=== PATIENT | female | born 1990 | race Caucasian/White ===

== ENCOUNTER 2017-09-24 18:53 | Inpatient (IN) | payer OTHER ==
[~2017-09-24] VITALS: Ht 172.7 cm; Wt 68.0 kg
[2017-09-24 19:19] VITALS: BP 122/81
--- NOTE | 2017-09-24 19:25 | NUR ---
to lobby, a/w jacob cordero ermd noted
[2017-09-24 20:00] LABS: WHITE BLOOD COUNT (AUTO) 13.2 K/uL (4.8-10.8)
[2017-09-24 20:05] LABS: HEMATOCRIT 38.7 % (36-48); HEMOGLOBIN 13.1 g/dL (12.0-16.0); MEAN CORPUSCULAR HEMOGLOBIN 33 pg (27-31); MEAN CORPUSCULAR HGB CONC 34 g/dL (33-37); MEAN CORPUSCULAR VOLUME 97 fL (80-94); PLATELET COUNT (AUTO) 254 K/uL (140-450); RED CELL DISTRIBUTION WIDTH 12.1 % (11.6-13.7)
[2017-09-24 20:08] LABS: APPEARANCE,URINE SL CLOUDY (CLEAR); BILIRUBIN,URINE 1+ (NEGATIVE); BLOOD, URINE 2+ (NEGATIVE); COLOR,URINE YELLOW (YELLOW); LEUKOCYTE ESTERASE ,URINE NEGATIVE (NEGATIVE); NITRITE, URINE NEGATIVE (NEGATIVE); UGLUCOSE NEGATIVE (NEGATIVE)
[2017-09-24 20:11] LABS: LYMPHOCYTES % (MANUAL) 23 % (20-46); MONOCYTES % (MANUAL) 7 % (5-12)
[2017-09-24 20:25] LABS: RBC,URINE 0-5 (RARE) /HPF (0-5); WBC,URINE 0-5 (RARE) /HPF (0-5)
[2017-09-24] MEDS ORDERED: NACL 0.9% 1,000 ML IV ONE (20:25)
--- NOTE | 2017-09-24 20:25 | NUR ---
BIB WHEELCHAIR TO ER BED 3
--- NOTE | 2017-09-24 21:23 | NUR ---
PT C/O LOWER ABD PAIN AND VAGINAL BLEEDING S/P MISCARRIAGE IN . PT STATES SHE IS CURRENTLY BEING SEEN BY HER OBGYN FOR MISCARRIAGE SHE HAD IN "". PT STATES TODAY SHE HAD INCREASE IN VAGINAL BLEEDING AND INCREASED LOWER ABD PAIN. PAIN 10/10, CRAMPING, ABD IS ROUND, SOFT, TENDER, HYPOACTIVE BS X4. PT DENIES PMH, NKA
[2017-09-24] MEDS ORDERED: MORPHINE SULFATE 4 MG/ML SYR IVP ONE (21:40)
[2017-09-24] MEDS ORDERED: ACETAMINOPHEN 325 MG TAB PO PRN (22:35)
[2017-09-24] MEDS ORDERED: ONDANSETRON 4 MG/2 ML VIAL IVP PRN (22:35)
[2017-09-24 23:00] VITALS: BP 111/71
--- NOTE | 2017-09-24 23:00 | NUR ---
Patient will be admitted to care of DR. CLIFTON. Admited to TELE. Will go to [id number]. Belongings list completed. Report to RUKHSANA.
--- NOTE | 2017-09-24 23:00 | NUR ---
Admitted from ER, with chief complaint of INCREASED BLEEDING AND ABD PAIN X1 DAY, DX L RUPTURED ECTOPIC. PT'S AT BEDSIDE. 26 y/o, Female, Cooperative, AOX4, AMBULATORY, ABLE TO VERBALIZE NEEDS. PT REPORTS REDUCED CONSTANT SHARP LOWER ABD PAIN AFTER RECEIVING MORPHINE 4MG IVP IN ER. PT REPORTS CONTROLLED BLEEDING AT THIS TIME. IV ACCESS ASYMPTOMATIC, PATENT AND INTACT, WILL ADMINISTER IVF ORDERED. oriented to call light, bed, phone,television, bathroom, smoking policy, visiting hours, procedures, ID bracelet on. Belongings list checked. ALL NEEDS MET. SAFETY MEASURES ENSURED. CALL LIGHT WITHIN REACH.
[2017-09-24 23:06] LABS: ANION GAP 17.1 (8-16); CARBON DIOXIDE 23.8 mmol/L (21-32); CREATININE 0.7 mg/dL (0.6-1.3); POTASSIUM 3.9 mmol/L (3.5-5.1)
[2017-09-24 23:13] LABS: BARBITURATE, URINE POS. ng/ml (NEG <=200); BENZODIAZEPINE, URINE NEG. ng/mL (NEG <=200); CANNABINOID, URINE POS. ng/mL (NEG <=50); COCAINE, URINE NEG. ng/mL (NEG <=300); OPIATE, URINE NEG. ng/mL (NEG <=2000); PHENCYCLIDINE SCREEN,URINE NEG. ng/mL (NEG <=25)
[2017-09-24] MEDS ORDERED: MORPHINE SULFATE 2 MG/ML SYR IVP ONE (23:20)
[2017-09-24 23:22] LABS: FREE T4 (FREE THYROXINE) 1.09 ng/dL (0.76-1.46); PHOSPHORUS 3.4 mg/dL (2.5-4.9); THYROID STIMULATING HORMONE 3.02 uIU/mL (0.34-3.74)
[2017-09-24] MEDS: NACL 0.9% 1,000 ML IV SCH (23:30)
--- NOTE | 2017-09-24 23:30 | NUR ---
DR HINOJOSA AT BEDSIDE TO DISCUSS PLAN OF CARE WITH PT AND PT'S . ADMINISTERED IVF WITH EDUCATION. PT VERBALIZED UNDERSTANDING. IVF INFUSING WELL. ALL NEEDS MET.
[2017-09-24] MEDS ORDERED: LEVOFLOXACIN 500 MG/D5W PREMIX 100 ML IV SCH (23:55)
[2017-09-25] VITALS (8 sets, daily range): BP systolic 101–114; BP diastolic 61–77
[2017-09-25] MEDS: MORPHINE SULFATE 2 MG/ML SYR IVP PRN ×4 (00:57→10:39)
--- NOTE | 2017-09-25 00:57 | NUR ---
PT C/O LOWER ABD PAIN, SEE PAIN ASSESSMENT, ADMINISTERED 2MG MORPHINE IVP PRN WITH EDUCATION. ADMINISTERED LEVAQUIN IVPB WITH EDUCATION. PT VERBALIZED UNDERSTANDING, TOLERATED MEDS WELL. ALL NEEDS MET. SAFETY MEASURES ENSURED.
--- NOTE | 2017-09-25 03:59 | NUR ---
PT REPORTS DECREASED VAGINAL BLEEDING. PT C/O LOWER ABD PAIN, SEE PAIN ASSESSMENT, ADMINISTERED 2MG MORPHINE IVP PRN WITH EDUCATION. PT VERBALIZED UNDERSTANDING, TOLERATED MEDS WELL. ALL NEEDS MET. SAFETY MEASURES ENSURED.
--- NOTE | 2017-09-25 07:10 | NUR ---
PT C/O ABD PAIN, SEE PAIN ASSESSMENT, ADMINISTERED MORPHINE 2MG IVP PRN. ENDORSED PLAN OF CARE TO AM NURSE. DR Imelda CUENCA AT BEDSIDE TO SPEAK WITH PT.
--- NOTE | 2017-09-25 07:11 | NUR ---
RECEIVED REPORT FROM THE DATA INTEGRATION ARCHITECT NURSE AT BEDSIDE FOR CONTINUITY OF CARE. PT IS AWAKE AND ORIENTED. INTRODUCED MYSELF AND UPDATE THE BOARD. DR. CUENCA IS HERE TO CONSULT. PER PT, PT STARTED BLEEDING HEAVILY LAST NIGHT W/ EXCRUCIATING ABD PAIN. SHE HAS HX OF AND MISCARRIAGE. HX OF R AND L OVARIAN CYSTS. LMP IS IN DEC, WHICH SHE HAD FOR 2 WEEKS. 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 WANTED TO WAIT AND SEE. PT HAS IV ON R WRIST 22G NS AT 75ML. WILL CONTINUE TO MONITOR PT.
--- NOTE | 2017-09-25 08:00 | NUR ---
V/S WITHIN NORMAL RANGE. DENIES PAIN AT THIS TIME. WILL NEED TO DISCUSS WITH AND WILL LET ME KNOW TO WHAT SHE HAS DECIDED TO DO. THEN I WILL CALL DR. CUENCA W/ DECISION. LAP OR OPEN CYSTECTOMY AND CLEAN OUT UTERUS. WILL CONTINUE PT ON NPO EXCEPT MEDS. WILL CONTINUE TO MONITOR PT.
[2017-09-25] MEDS: LACTOBACILLUS RHAMNOSUS GG 1 EACH CAP PO SCH (08:46)
[2017-09-25] MEDS: DOCUSATE SODIUM 100 MG GELCAP PO SCH ×2 (08:46→20:34)
--- NOTE | 2017-09-25 08:50 | NUR ---
ADMINISTERED MORNING MEDS. PT TOLERATED WELL. SPOUSE AND MOM AT BEDSIDE. DECIDED TO GO WITH LESS INVASIVE PROCEDURE. CONCERNED ABOUT INS. WOULD LIKE TO TALK TO SOMEONE ABOUT IT. WILL F/U. WILL NOTIFY DR. CUENCA. WILL CONTINUE TO MONITOR PT.
--- NOTE | 2017-09-25 09:20 | NUR ---
PATIENT HAS BEEN SCREENED AND CATEGORIZED LOW NUTRITION RISK. PATIENT WILL BE SEEN WITHIN 7 DAYS OF ADMISSION. 09/30/[address]
[2017-09-25] MEDS: NACL 0.9% 1,000 ML IV SCH ×2 (10:39→20:40)
--- NOTE | 2017-09-25 10:53 | NUR ---
FAMILY INSISTS ON SPEAKING TO DR CUENCA AND INSURANCE PERSON. PAGED DR CUENCA AGAIN. NO CALL BACK OF YET. FAMILY AT BEDSIDE WAITING.
[2017-09-25] MEDS: HYDROcodone/APAP 7.5/325 MG 1 TAB PO PRN ×2 (14:08→21:05)
--- NOTE | 2017-09-25 14:11 | NUR ---
PT C/O MILD PAIN. 01/25. ADMINISTERED NORCO. PT TOLERATED WELL. FAMILY IN ROOM. WILL CONTINUE TO MONITOR PT.
--- NOTE | 2017-09-25 14:54 | NUR ---
PT IS VISITING WITH FAMILY. REQUESTED PT TO REMOVE ALL JEWELRY. TICKET TO RIDE IN CHART. PRE-OP CHECK LIST DONE. AWAITING O/R NURSES.
[2017-09-25] MEDS ORDERED: BUPIVACAINE-MPF 0.25% 30 ML VIAL INJ ONE (15:10)
--- NOTE | 2017-09-25 15:30 | NUR ---
2 OR NURSES CAME AND TOOK PT FOR PROCEDURE. FAMILY ACCOMPANIED HER. THEY WILL BE WAITING FOR PT IN THE THEIR WAITING ROOM. WILL AWAIT HER RETURN.
--- NOTE | 2017-09-25 15:30 | NUR ---
CM NOTE INITIAL REVIEW FAXED TO [facility] / FAX# [phone], ATTN: SAMI #[phone]
[2017-09-25] MEDS ORDERED: GLYCOPYRROLATE 0.2 MG/ML VIAL ONE (15:55)
[2017-09-25] MEDS ORDERED: PROPOFOL 200 MG/20 ML VIAL IV ONE (15:55)
[2017-09-25] MEDS ORDERED: ONDANSETRON 4 MG/2 ML VIAL ONE (15:55)
[2017-09-25] MEDS ORDERED: ROCURONIUM 50 MG/5 ML VIAL IV ONE (15:55)
[2017-09-25] MEDS ORDERED: NEOSTIGMINE 1:1000 10 MG/10 ML VIAL ONE (15:55)
[2017-09-25] MEDS ORDERED: LIDOCAINE 2% 100 MG/5 ML SYR IVP ONE (15:55)
[2017-09-25] MEDS ORDERED: DESFLURANE 240 ML BTL INH ONE (15:55)
[2017-09-25] MEDS ORDERED: DEXAMETHASONE 4 MG/ML VIAL ONE (15:55)
[2017-09-25] MEDS ORDERED: SUCCINYLCHOLINE CHLORIDE 200 MG/10 ML VIAL IVP ONE (15:55)
[2017-09-25] MEDS ORDERED: fentaNYL 0.05 MG/ML VIAL ONE (16:07)
[2017-09-25] MEDS ORDERED: MIDAZOLAM 2 MG/2 ML VIAL ONE (16:07)
[2017-09-25] MEDS ORDERED: ONDANSETRON 4 MG/2 ML VIAL IVP PRN ×2 (16:30→17:30)
[2017-09-25] MEDS ORDERED: MORPHINE SULFATE 4 MG/ML SYR IM/IVP PRN (17:30)
[2017-09-25] MEDS ORDERED: ACETAMINOPHEN/CODEINE 300/30MG 1 TAB PO PRN (17:30)
[2017-09-25] MEDS ORDERED: IBUPROFEN 800 MG TAB PO PRN (17:30)
[2017-09-25] MEDS: HYDROmorphone PFS 2 MG/ML SYR IVP PRN ×2 (17:45→17:55)
[2017-09-25] MEDS ORDERED: HYDROmorphone PFS 2 MG/ML SYR ONE (17:48)
--- NOTE | 2017-09-25 18:25 | NUR ---
PT ARRIVED ON THE UNIT WITH 2 OR NURSES. PT IS ACCOMPANIED BY HER . V/S WITHIN NORMAL RANGE. PT AWAKE AND ORIENTED. BACK ON THE TELE MONITOR. WILL CONTINUE WITH POST OP MONITORING.
--- NOTE | 2017-09-25 19:20 | NUR ---
ENDORSED PT TO THE DOOR SERVICEMAN NURSE AT BEDSIDE FOR CONTINUITY OF CARE. PT IS IN STABLE CONDITION. SPOUSE AT BEDSIDE. BIT NAUSEATED. VOMIT BAG AT BEDSIDE. CRACKERS GIVEN.
--- NOTE | 2017-09-25 19:20 | NUR ---
PATIENT REPORT RECEIVED FROM MORNING NURSE AT BEDSIDE. PATIENT AWAKE, ALERT AND ORIENTED. NO SIGNS AND SYMPTOMS OF DISTRESS NOTED. BREATHING EVEN AND UNLABORED. PATIENT'S IS AT BEDSIDE. IV SITE NOTED ON RIGHT WRIST. IVF INFUSING WELL. SURGICAL SITE ON LOWER ABDOMEN COVERED WITH GAUZE. DRESSING DRY AND INTACT. 2ND SURGICAL SITE NEAR NAVEL AREA COVERED WITH BANDAID. PLAN OF CARE DISCUSSED WITH PATIENT AND FAMILY MEMBER. PATIENT VERBALIZED UNDERSTANDING. WILL CONTINUE TO MONITOR.
--- NOTE | 2017-09-25 19:30 | NUR ---
PATIENT REPORT GIVEN TO ED LUCAS FOR CONTINUITY OF CARE. PATIENT IS IN STABLE CONDITION
--- NOTE | 2017-09-25 19:31 | NUR ---
RECEIVED BEDSIDE REPORT FROM LANCE ROSS, PT STABLE, NO DISTRESS NOTED, IV TO R WRIST 22G, RUNNING NS @ 75ML/HR, INFUSING WELL, NO SOB, BY BEDSIDE, CALL LIGHT WITHIN REACH, WILL CONTINUE TO MONITOR.
[2017-09-25] MEDS ORDERED: LEVOFLOXACIN 500 MG/D5W PREMIX 100 ML IV SCH (21:00)
--- NOTE | 2017-09-25 21:05 | NUR ---
PT C/O PAIN 10, PAIN MEDICATION GIVEN, PT TOLERATED WELL, WILL CONTINUE TO MONITOR.
[2017-09-25 22:15] LABS: HEMATOCRIT 31.5 % (36-48); HEMOGLOBIN 10.5 g/dL (12.0-16.0); MEAN CORPUSCULAR HEMOGLOBIN 32 pg (27-31); MEAN CORPUSCULAR HGB CONC 33 g/dL (33-37); MEAN CORPUSCULAR VOLUME 96 fL (80-94); PLATELET COUNT (AUTO) 187 K/uL (140-450); RED CELL DISTRIBUTION WIDTH 11.6 % (11.6-13.7); WHITE BLOOD COUNT (AUTO) 11.9 K/uL (4.8-10.8)
--- NOTE | 2017-09-25 22:33 | NUR ---
ENDORSED PLAN OF CARE TO LANCE ROSS FOR CONTINUITY OF CARE. PT STABLE, NO DISTRESS NOTED, CALL LIGHT WITHIN REACH.
--- NOTE | 2017-09-25 22:34 | NUR ---
PATIENT REPORT RECEIVED FROM LANCE WARD FOR CONTINUITY OF CARE. PATIENT IS IN STABLE CONDITION.
[2017-09-25 22:44] LABS: LYMPHOCYTES % (MANUAL) 4 % (20-46); MONOCYTES % (MANUAL) 1 % (5-12)
[2017-09-26] VITALS: BP 96/58
--- NOTE | 2017-09-26 00:30 | NUR ---
CHECKED ON PATIENT. PATIENT IS ASLEEP. NO SIGNS AND SYMPTOMS OF DISTRESS NOTED. BREATHING EVEN AND UNLABORED. WILL CONTINUE TO MONITOR.
--- NOTE | 2017-09-26 02:00 | NUR ---
ASSISTED PATIENT TO THE RESTROOM. PATIENT VOIDED. NO SIGNS AND SYMPTOMS OF DISTRESS NOTED. NO SOB. PATIENT ESCORTED BACK TO BED.
[2017-09-26] MEDS: HYDROcodone/APAP 7.5/325 MG 1 TAB PO PRN ×3 (02:46→13:11)
[2017-09-26 04:00] VITALS: BP 109/73
[2017-09-26 06:18] LABS: BASOPHILS # (AUTO) 0.1 K/uL (0.00-0.22); BASOPHILS % (AUTO) 0.8 % (0.0-2.0); EOSINOPHILS # (AUTO) 0.1 K/uL (0-0.4); EOSINOPHILS % (AUTO) 1.1 % (0.0-4.0); HEMATOCRIT 29.4 % (36-48); LYMPHOCYTES # (AUTO) 0.8 K/uL (2.5-16.5); LYMPHOCYTES % (AUTO) 7.1 % (20.5-51.1); MEAN CORPUSCULAR HEMOGLOBIN 33 pg (27-31); MEAN CORPUSCULAR HGB CONC 34 g/dL (33-37); MEAN CORPUSCULAR VOLUME 96 fL (80-94); MONOCYTES # (AUTO) 1.1 K/uL (0.8-1.0); MONOCYTES % (AUTO) 9.8 % (1.7-9.3); NEUTROPHILS % (AUTO) 81.2 % (42.2-75.2); PLATELET COUNT (AUTO) 172 K/uL (140-450); RED BLOOD CELL COUNT(AUTO) 3.05 MIL/uL (4.20-5.40); RED CELL DISTRIBUTION WIDTH 11.7 % (11.6-13.7)
[2017-09-26 06:27] LABS: ANION GAP 12.7 (8-16); CARBON DIOXIDE 25.1 mmol/L (21-32); CREATININE 0.5 mg/dL (0.6-1.3); POTASSIUM 3.8 mmol/L (3.5-5.1)
[2017-09-26 06:28] LABS: MAGNESIUM 1.6 mg/dL (1.8-2.4); PHOSPHORUS 4.1 mg/dL (2.5-4.9)
[2017-09-26 06:51] LABS: WHITE BLOOD COUNT (AUTO) 11.1 K/uL (4.8-10.8)
--- NOTE | 2017-09-26 07:29 | NUR ---
PATIENT REPORT GIVEN TO MORNING NURSE AT BEDSIDE. PATIENT IS IN STABLE CONDITION
--- NOTE | 2017-09-26 07:32 | NUR ---
RECEIVED PATIENT REPORT AT BEDSIDE FROM NIGHT NURSE. PATIENT IS AAOX4 AND SHOWS NO S/S OF ACUTE DISTRESS ON ROOM AIR. PATIENT C/O SHOULDER PAIN 6/10 AND ABD TENDERNESS; WILL MEDICATE. NOTED SURGICAL INCISION WITH STERI STRIPS CLEAN DRY AND INTACT. NOTED IV ON THE RIGHT WRIST WITH IVF'S INFUSING WELL. DR CALLAHAN AT BEDSIDE AND DISCUSSED POC FOR TODAY. PATIENT IS AWARE OF HOSPITAL ENVIRONMENT AND HOW TO USE CALL LIGHT FOR ASSISTANCE. BED IN LOW POSITION WITH CALL LIGHT WITHIN REACH, PATIENT VERBALIZED UNDERSTANDING.
--- NOTE | 2017-09-26 07:49 | NUR ---
PATIENT C/O 6/10 ABD PAIN AND SHOULDER PAIN. ADMINISTERED NORCO 7.5/325 MG PO. WILL REASSESS PAIN IN ONE HR.
[2017-09-26 08:00] VITALS: BP 106/96
[2017-09-26] MEDS: LACTOBACILLUS RHAMNOSUS GG 1 EACH CAP PO SCH (09:13)
[2017-09-26] MEDS: DOCUSATE SODIUM 100 MG GELCAP PO SCH (09:13)
--- NOTE | 2017-09-26 09:15 | NUR ---
ADMINISTERED SCHEDULED MEDS. PATIENT SWALLOWED MEDICATION WITHOUT DIFFICULTY. ALL PATIENT NEEDS MET AT THIS TIME. BED IN LOW POSITION. CALL LIGHT WITHIN REACH
--- NOTE | 2017-09-26 10:15 | NUR ---
[place] [facility] [phone] PHONE SAMI [phone]
--- NOTE | 2017-09-26 10:35 | NUR ---
PATIENT AMB ON UNIT WITH STEADY GAIT. PRESENT AT SIDE.
[2017-09-26] MEDS ORDERED: SIMETHICONE 80 MG TAB.CHEW PO SCH (12:42)
[2017-09-26] MEDS ORDERED: POLYETHYLENE GLYCOL 17 GM/PKT PO SCH (12:42)
--- NOTE | 2017-09-26 13:13 | NUR ---
ADMINISTERED SCHEDULED MEDICATIONS. PATIENT C/O 11/25 ABD PAIN, NORCO 7.5/325 MG PO GIVEN WILL REASSESS IN ONE HR.
[2017-09-26] MEDS ORDERED: MAGNESIUM OXIDE 400 MG TAB PO SCH (13:28)
[2017-09-26] MEDS ORDERED: ACET-2863 PO (13:51)
--- NOTE | 2017-09-26 15:30 | NUR ---
PATIENT HAS BEEN DISCHARGED, ALL DISCHARGE INSTRUCTIONS AND PRESCRIPTIONS GIVEN. ALL PAPERWORK SIGNED, ALL QUESTIONS ANSWERED, PATIENT VERBALIZED UNDERSTANDING OF CONTINUITY OF CARE. IV WAS DC'ED WITH CANNULA INTACT. PATIENT AMB OFF UNIT WITH STEADY GAIT WITH PRESENT AT SIDE. PATIENT LEFT UNIT IN STABLE CONDITION.
--- NOTE | 2017-09-26 16:56 | NUR ---
SPOKE WITH SAMI RAMIREZ FROM [facility] [place] AND INFORMED HER PATIENT DISCHARGED. FAXED HER THE DISCHARGE SUMMARY.
== END 2017-09-26 15:30 | disposition home or self-care (01) | DRG 777 ==
LOC: MED 18:53 → MTU 22:31
PROVIDERS: ADMIT Family Medicine; ATTEND Family Medicine
PROC: 10D27ZZ Extraction of Products of Conception, Ectopic, Via Natural or Artificial Opening (ICD-10-PCS; 2017-09-25)
PROC: 0W9G0ZZ Drainage of Peritoneal Cavity, Open Approach (ICD-10-PCS; 2017-09-25)
PROC: 0UB00ZZ Excision of Right Ovary, Open Approach (ICD-10-PCS; principal; 2017-09-25 16:00)
DX: O00.102 Left tubal pregnancy without intrauterine pregnancy (principal); N17.0 Acute kidney failure with tubular necrosis; K66.1 Hemoperitoneum; D62 Acute posthemorrhagic anemia; E83.42 Hypomagnesemia; N39.0 Urinary tract infection, site not specified; N83.201 Unspecified ovarian cyst, right side; Z53.31 Laparoscopic surgical procedure converted to open procedure
CPT/HCPCS: 36415; 71045; 76830; 80048; 80305; 81001; 82150; 82374; 83036; 83690; 83735; 83880; 84100; 84439; 84443; 84484; 84702; 85025; 85610; 85730; 86886; 86900; 86901; 87081; 87086; 96361; 96374; 99285; J0330; J1100; J1170; J1956; J2001; J2250; J2270; J2405; J2704; J2710; J3010; J3490; J7030; Q0092